=== PATIENT | female | born 1980 | race Caucasian/White ===

== ENCOUNTER 2025-10-29 12:34 | Emergency (ER) | payer OTHER, SELFPAY ==
[2025-10-29 12:37] VITALS: BP 130/93; PULSE 83; TEMP 36.9; O2SAT 96; BMI 62.9
[2025-10-29 13:21] LABS: SARS-CoV-2 Ag NEGATIVE (NEGATIVE)
--- OUTSIDE RECORDS SUMMARY | 2025-10-29 13:54 | XMS_ITS | Clinical Summary ---
Author Organization [facility] Address [address] [place] [id number] Care Team Providers Care Ranch Supervisor Name Role Phone Aurelio Novoa MD Primary Care Provider + Allergies No known active allergies Medications MedicationSigDispense QuantityRefillsLast FilledStart DateEnd DateStatus trazodone HCl (TRAZODONE PO) Take by mouth.Active albuterol HFA (PROVENTIL HFA, VENTOLIN HFA) 90 mcg/actuation inhaler Inhale 2 puffs as instructed every 6 hours as needed.Active Omeprazole 20 mg TbEC Take 20 mg by mouth once daily.Active fluticasone (FLOVENT) 44 mcg/actuation inhaler Inhale 2 puffs as instructed two times a day.10/09/2022ctive furosemide (LASIX) 20 mg tablet Take 20 mg by mouth once daily.Active hydrOXYzine pamoate (VISTARIL) 25 mg capsule Take 25 mg by mouth three times a day as needed for anxiety.06/12/2022ctive lamoTRIgine (LAMICTAL) 100 mg tablet Take 100 mg by mouth two times a day.Active lurasidone (LATUDA) 60 mg tablet Take 60 mg by mouth daily with food.Active montelukast (SINGULAIR) 10 mg tablet Take 10 mg by mouth daily at bedtime.Active sertraline (ZOLOFT) 50 mg tablet Take 50 mg by mouth once daily.5Active Trospium (SANCTURA SR) 60 mg cp24 Take 60 mg by mouth once daily.4Active GEMTESA 75 mg tablet Take 75 mg by mouth once daily.5Active traZODone (DESYREL) 50 mg tablet Take 50 mg by mouth daily at bedtime.5Active Active Problems ProblemNoted DateDiagnosed DateGERD (gastroesophageal reflux disease)06/13/2021 SOBOE (shortness of breath on exertion)06/13/2021Morbid obesity due to excess iknylkpn00/10/2021UI (stress urinary incontinence, female)04/30/2021annus, yegotwsmy57/28/2021Urgency-frequency uwhjmhhl31/28/2016 Social History Tobacco UseTypesPacks/DayYears UsedDateSmoking Tobacco: Every DayCigarettes Tobacco Cessation:Ready to Q uit: Not Asked; Counseling Given: Not Answered Alcohol UseStandard Drinks/WeekCommentsNever0 (1 standard drink = 0.6 oz pure alcohol)Area Deprivation IndexAnswerDate RecordedNational Score (1-100), lower number is lower fzwb633505/20/2025State Score (1-10), lower number is lower risk5 05/20/2025Data from: https://www.neighborhoodatlas.[facility].edu/. Last address used for vioqxajqnsl[address] [facility]05/20/2025CommentsUnknownSex and Gender InformationValueDate RecordedSex Assigned at BirthNot on fileLegal LijUqpajc15/19/2021 10:08 PM ESTGender IdentityNot on fileSexual OrientationNot on file Last Filed Vital Signs Vital SignReadingTime TakenCommentsBlood Urymdsag397/6407 12:00 PM EDT Dalmd791205/20/2025 2:00 PM EYTRxffmkkosbo22.4 ??C (97.5 ??F)05/20/2025 9:52 AM EDTRespiratory Bcqz858905/20/2025 2:00 PM EDTOxygen Wxsxnrrexz521%05/20/2025 2:00 PM EDTInhaled Oxygen Concentration--Ebfqug842.3 kg (305 lb)05/20/2025 9:52 AM EDTHeight--Body Mass Index-- Plan of Treatment Health MaintenanceDue DateLast DoneCommentsAnxiety Zgteocaqg70/20/1998Depression Bojwgundm97/20/1998HIV Ouwdufcmf89/20/1998Hepatitis C Jrozlknnd14/20/1998 DTaP,Tdap,Td Vaccine (1 - Tdap)02/20/1999Hepatitis B Vaccine (1 of 3 - 19+ 3- dose series)02/20/1999Cervical Cancer Utkmvvvjg06/20/2001HPV Vaccine (1 - 3-dose SCDM series)02/20/2007Pneumococcal Vaccine (2 of 2 - PCV) Mammogram Edpbxzfol49/11/971090/09/2023, 07/01/2022, 06/18/2021, Additional history existsCT Awlanyhkawpc27/20/2025Cologuard (FIT-DNA)5Colonoscopy 5Colorectal Cancer Oieuyydoj17/20/2025Fecal Occult Blood02/20/2025 Jrizqpuhibohx23/20/2025Covid-19 Vaccine ( season)2025 11/23/2021, 04/28/2021, 03/31/2021Influenza Vaccine (#1)2024, 08/30/2022, 08/22/2021, Additional history existsLipid Crderdseb59/17/2026 1Diabetes Nyqnwnsqv94/18/934103/, 09/30/2021, 09/30/2021, Additional history exists Procedures Procedure NamePriorityDate/TimeAssociated DiagnosisCommentsCOMPREHENSIVE METABOLIC FPHOHJOKA49/18/2025 11:19 AM EDT SARA SCREENING W TOMO07/14/2023 10:29 AM EDT LIPID PANEL, OSLWILBTdhhqwk82/17/2021 10:47 AM EDT from Last 3 Months or Most Recently Relevant to Health Maintenance Results * (ABNORMAL) COMPREHENSIVE METABOLIC PANEL (05/20/2025 11:19 AM EDT)Component ValueRef RangeTest MethodAnalysis TimePerformed AtPathologist Signature Protein, Total7.26.3 - 8.0 g/dL05/20/2025 11:44 AM [facility] Albumin4.43.9 - 4.9 g/dL05/20/2025 11:44 AM [facility] LABCalcium, Total9.68.5 - 10.2 mg/dL05/20/2025 11:44 AM [facility] Bilirubin, Total1.00.2 - 1.3 mg/dL05/20/2025 11:44 AM [facility] LABComment:Use of this assay is not recommended for patients undergoing treatment with eltrombopag due to the potential for falsely elevated results. Alkaline Jxvzbmblkmx9702 - 123 U/L05/20/2025 11:44 AM [facility] PXRUMT3471 - 35 U/L05/20/2025 11:44 AM [facility] YANIPK114 - 38 U/L05/20/2025 11:44 AM [facility] BODCydnfga461(H)74 - 99 mg/dL 05/20/2025 11:44 AM [facility] LABComment: The [place] Diabetes Association (ADA) provides guidance for cutoff values for fasting glucose andrandom glucose. The ADA defines fasting as no caloric intake for at least 8 hours. Fasting plasma glucose results between 100 to 125 mg/dL indicate increased risk for diabetes (prediabetes). Fasting plasma glucose results greater than or equal to 126 mg/dL meet the criteria for diagnosis of diabetes. In the absence of unequivocal hyperglycemia, results should be confirmed by repeat testing. In a patient with classic symptoms of hyperglycemia or hyperglycemic crisis, random plasma glucose results greater than or equal to 200 mg/dL meet the criteria for diagnosis of diabetes. Reference: Standards of Medical Care in Diabetes 2016, Australian Diabetes Association. Diabetes Care. 2016.39(Suppl 1). THJ220 - 21 mg/dL05/20/2025 11:44 AM [facility] LABCreatinine0.90 0.58 - 0.96 mg/dL05/20/2025 11:44 AM [facility] LABComment:Use of this assay is not recommended for patients undergoing treatment with phenindione, due to thepotential for falsely depressed results.Kpliwr231775 - 144 mmol/L05/20/2025 11:44 AM [facility] LABPotassium3.3(L)3.7 - 5.1 mmol/L05/20/2025 11:44 AM [facility] DPLMldubqxf38642 - 107 mmol/L 05/20/2025 11:44 AM [facility] VUAWT451(L)22 - 30 mmol/L05/20/2025 11:44 AM [facility] LABAnion Pmw980 - 15 mmol/L05/20/2025 11:44 AM [facility] LABEstimated Glomerular Filtration Rate81>=60 mL/min/1.73m 05/20/2025 11:44 AM [facility] LABComment:Estimated Glomerular Filtration Rate (eGFR) is calculated using the 2020 CKD-EPI creatinine equation. This equation utilizes serum creatinine, sex, and age as parameters. The creatinine assay has traceable calibration to isotope dilution-mass spectrometry. Refer to KDIGO guidelines for clinical interpretation. In patients with unstable renal function, e.g. those with acute kidney injury, the eGFRmay not accurately reflect actual GFR.Specimen (Source)Anatomical Location / LateralityCollection Method / VolumeCollection TimeReceived TimeBloodBLOOD SPECIMEN / UnknownVenipuncture / Inuehmm7705/20/2025 11:19 AM EDT05/20/2025 11:26 AM EDT Narrative Authorizing ProviderResult TypeResult StatusJoeliazar Tamayo MDLABORATORYFinal ResultPerforming OrganizationAddressCity/State/ZIP CodePhone Number [facility] [address] [place] [address], * SARA SCREENING W MARTINEZ (07/14/2023 10:29 AM EDT)Anatomical RegionLaterality ModalityBreastMammographySpecimen (Source)Anatomical Location / Laterality Collection Method / VolumeCollection TimeReceived Time07/14/2023 10:29 AM EDT Impressions 07/14/2023 1:03 PM EDT IMPRESSION: NEGATIVE There is no mammographic evidence of malignancy. A 1 year screening mammogram is recommended. The false-negative rate of mammography is approximately 10%. Management of a palpable abnormality must be based upon clinical grounds. Adeola Woodward M.D. ear/penrad:07/14/2023 11:22:19 Slip Caster: Alyson Cutler RT(Josesito)(Whit), [facility] letter sent: Mammography Normal BI-RADS: 1 Negative Gymnastic Teacher: Betty Transcribe Date/Time: Jul 14 2023 10:31A Dictated by : ADEOLA ??MD CRISSY This examination was interpreted and the report reviewed and electronically signed by: ADEOLA WOODWARD MD on Jul 14 2023 11:22AM ??EST Narrative 07/14/2023 1:03 PM EDT * * *Final Report* * * DATE OF EXAM: Jul 14 2023 10:29AM ?? RLW ?? 0582 ??- ??SARA SCREENING W MARTINEZ ??/ PROCEDURE REASON: BILATERAL SCREENING MAMMOGRAM WITH CAD [id number] ? * * * * Physician Interpretation * * * * BILATERAL DIGITAL SCREENING MAMMOGRAM TOMOSYNTHESIS WITH CAD: 07/14/2023 Ordering Physician: ??Aurelio Novoa M.D. CLINICAL: Bilateral Screening Mammogram With Cad [id number]. Comparison is made to exams dated: ??07/01/2022 mammogram - [facility] and 06/18/2021 mammogram - [facility]. The tissue of both breasts is predominantly fatty. Digital Breast Tomosynthesis was performed. Current study was also evaluated with a Computer Aided Detection (CAD) system. No significant masses, calcifications, or other findings are seen in either breast. There has been no significant interval change. Procedure Note Provider, [facility] - 07/14/2023 * * *Final Report* * * DATE OF EXAM: Jul 14 2023 10:29AM RLW 0582 - SARA SCREENING W MARTINEZ / PROCEDURE REASON: BILATERAL SCREENING MAMMOGRAM WITH CAD [id number] * * * * Physician Interpretation * * * * BILATERAL DIGITAL SCREENING MAMMOGRAM TOMOSYNTHESIS WITH CAD: 07/14/2023 Ordering Physician: Aurelio Novoa M.D. CLINICAL: Bilateral Screening Mammogram With Cad [id number]. Comparison is made to exams dated: 07/01/2022 mammogram - [facility] and 06/18/2021 mammogram - [facility]. The tissue of both breasts is predominantly fatty. Digital Breast Tomosynthesis was performed. Current study was also evaluated with a Computer Aided Detection (CAD) system. No significant masses, calcifications, or other findings are seen in either breast. There has been no significant interval change. IMPRESSION IMPRESSION: NEGATIVE There is no mammographic evidence of malignancy. A 1 year screening mammogram is recommended. The false-negative rate of mammography is approximately 10%. Management of a palpable abnormality must be based upon clinicalgrounds. Adeola Woodward M.D. ear/penrad:07/14/2023 11:22:19 Slip Caster: Alyson UMANZOR)(M), [facility] letter sent: Mammography Normal BI-RADS: 1 Negative Gymnastic Teacher: Betty Transcribe Date/Time: Jul 14 2023 10:31A Dictated by : ADEOLA WOODWARD MD This examination was interpreted and the report reviewed and electronically signed by: ADEOLA WOODWARD MD on Jul 14 2023 11:22AM EST Authorizing ProviderResult TypeResult StatusBrasalomon Novoa MDMAM-PAMAFinal Result * LIPID PANEL BASIC (07/20/2021 10:47 AM EDT)ComponentValueRef RangeTest Method Analysis TimePerformed AtPathologist GlhtvxtztPzdcnqpjrgfc78200 - 149 MG/DL [facility] LABORATORYCholesterol, Fwtlx9988 - 199 MG/DLOHIOHEALTH GROVE CITY [facility]IST [facility] LABORATORYHDL Ebbhbeedxmw0145 - 60 MG/DLOHIOHEALTH GROVE CITY [facility]IST [facility] LABORATORYLDL Cholesterol, Teqsyocuhv4170 - 129 MG/DLOHIOHEALTH GROVE CITY [facility]IST [facility] LABORATORYSpecimen (Source)Anatomical Location / LateralityCollection Method / VolumeCollection TimeReceived TimeBLOOD SPECIMEN / Ujtelzy6907/20/2021 10:47 AM EDT07/20/2021 10:47 AM EDT Narrative [facility] - 07/20/2021 12:26 PM EDT Calculate Medical Necessity? Authorizing ProviderResult TypeResult StatusLeisa BridleLABORATORYFinal Result Performing OrganizationAddressCity/State/ZIP CodePhone Number [facility] [address] [place] [address], from Last 3 Months or Most Recently Relevant to Health Maintenance Insurance * Guarantor: Zayra Byers TypeRelation to PatientDate of BirthPhone Billing AddressPersonal/[address]df[address]nc[address]1980 [place] [address] Care Teams Team MemberRelationshipSpecialtyStart DateEnd Date Aurelio Novoa MD [facility] [place] [address] PCP - GeneralFamily Medicine06/04/23
[2025-10-29 14:07] VITALS: BP 135/104; PULSE 86; O2SAT 97
--- NOTE | 2025-10-29 18:17 | ED.GENADUL1 ---
HPI HPI - General Adult General Chief complaint: Upper Respiratory Infection Stated complaint: SOB Time Seen by Provider: 10/29/25 12:46 Source: patient Mode of arrival: ambulance History of Present Illness HPI narrative: Patient is a 45-year-old female presenting to the emergency department of EMS for URI symptoms x 1 week. Patient states she has a sore throat, cough, congestion, and fatigue for the last week. States he has a history of asthma, but did not believe she is wheezing. She denies any significant shortness of breath or chest pain. No nausea or vomiting. No fevers or chills. Still tolerating p.o. Related Data Home Medications ?Medication ?Instructions ?Recorded ?Confirmed furosemide 40 mg tablet 40 mg PO DAILY 10/29/25 10/29/25 hydroxyzine HCl 25 mg tablet 25 mg PO BID 10/29/25 10/29/25 levothyroxine 75 mcg capsule 75 mcg PO DAILY 10/29/25 10/29/25 lurasidone 60 mg tablet 60 mg PO DAILY 10/29/25 10/29/25 montelukast 10 mg tablet 10 mg PO DAILY 10/29/25 10/29/25 omeprazole 20 mg capsule,delayed 20 mg PO DAILY 10/29/25 10/29/25 release sertraline 50 mg tablet 50 mg PO DAILY 10/29/25 10/29/25 trazodone 50 mg tablet 50 mg PO DAILY 10/29/25 10/29/25 trospium 60 mg capsule,extended 60 mg PO DAILY 10/29/25 10/29/25 release 24 hr vibegron 75 mg tablet (Gemtesa) 75 mg PO DAILY 10/29/25 10/29/25 Previous Rx's ?Medication ?Instructions ?Recorded amoxicillin 875 mg tablet 875 mg PO Q12H 10 days #20 tabs 10/29/25 Allergies Allergy/AdvReac Type Severity Reaction Status Date / Time fluticasone (From Flonase) AdvReac Intermediate nose bleed Verified 10/29/25 12:35 gold luz powder AdvReac Mild Rash Uncoded 10/29/25 12:35 Review of Systems ROS Status of ROS 10 or more systems reviewed and unremarkable except as noted in history and below PFSH PFSH Social History Little interest or pleasure in doing things: not at all Feeling down, depressed, or hopeless: not at all Exam Narrative Exam Narrative: CONSTITUTIONAL: Well-appearing, answering questions and following commands appropriately SKIN: Was warm and dry. EYES: Sclerae white. EARS, NOSE, THROAT: Moist oral mucosa. Mild pharyngeal edema without tonsillar enlargement or exudates. Uvula midline. No UMBRELLA TIPPER. No trismus. Speaking with normal voice. RESPIRATORY: Clear to auscultation bilaterally, no wheezes, crackles, or stridor, no use of accessory muscles CARDIOVASCULAR: Normal rate and regular rhythm. There is no S3, S4, murmur, rub. GASTROINTESTINAL: Abdomen is nondistended. MUSCULOSKELETAL: No peripheral edema. NEUROLOGIC: Patient is awake and alert. Facies were symmetrical. Constitutional Vital Signs, click to edit/add: Last Vital Signs Temp 98.5 F 10/29/25 12:37 Pulse 86 10/29/25 14:07 Resp 18 10/29/25 14:07 BP 135/104 H 10/29/25 14:07 Pulse Ox 97 10/29/25 14:07 O2 Del Method Room Air 10/29/25 14:07 Course Vital Signs Vital signs: Vital Signs Temperature 98.5 F 10/29/25 12:37 Pulse Rate 83 10/29/25 12:37 Respiratory Rate 18 10/29/25 12:37 Blood Pressure 130/93 H 10/29/25 12:37 Pulse Oximetry 96 10/29/25 12:37 Oxygen Delivery Method Room Air 10/29/25 12:37 Temperature 98.5 F 10/29/25 12:37 Pulse Rate 86 10/29/25 14:07 Respiratory Rate 18 10/29/25 14:07 Blood Pressure 135/104 H 10/29/25 14:07 Pulse Oximetry 97 10/29/25 14:07 Oxygen Delivery Method Room Air 10/29/25 14:07 Medical Decision Making [facility] Narrative Medical decision making narrative: Patient is a 45-year-old female presenting to the emergency department for evaluation of URI symptoms x 1 week. Her vital signs on arrival are within normal limits. She is afebrile and hemodynamically stable. She is saturating 97% on room air in no respiratory distress. Examination as noted above. Differential diagnosis includes streptococcal pharyngitis, viral URI. I did consider pneumonia, however the patient has clear/equal breath sounds bilaterally, is not hypoxic, and overall looks non-toxic and well-hydrated. Patient tested positive for streptococcal pharyngitis. I do believe the patient is stable for discharge. They were instructed to follow up with their PCP as needed. Return precautions were given including any new or worsening symptoms. They were given a prescription for amoxicillin 500 mg twice daily x 10 days. Patient understands and agrees to the plan. FINAL IMPRESSION: #Acute streptococcal pharyngitis DISPOSITION: Discharged home CONDITION: Good Lab Data Lab results reviewed: Yes I reviewed the patient's lab results Labs: Lab Results 10/29/25 Range/Units 12:47 Influenza Type A Ag Negative Influenza Type B Ag Negative SARS-CoV-2 Ag (CV2AG) Negative (NEGATIVE) Streptococcus Screen Positive A Discharge Plan Discharge Chief Complaint: Upper Respiratory Infection Clinical Impression: Strep pharyngitis Patient Disposition: Home, Self-Care Time of Disposition Decision: 13:22 Condition: Good Mode of Transportation: Private Vehicle Prescriptions / Home Meds: New amoxicillin 875 mg tablet 875 mg PO Q12H 10 Days Qty: 20 0RF No Action montelukast 10 mg tablet 10 mg PO DAILY furosemide 40 mg tablet 40 mg PO DAILY trazodone 50 mg tablet 50 mg PO DAILY omeprazole 20 mg capsule,delayed release(DR/EC) 20 mg PO DAILY hydroxyzine HCl 25 mg tablet 25 mg PO BID sertraline 50 mg tablet 50 mg PO DAILY trospium 60 mg capsule,extended release 24hr 60 mg PO DAILY Rx Instructions: must be taken on empty stomach at least 1 hour before a meal/food with water only levothyroxine 75 mcg capsule 75 mcg PO DAILY lurasidone 60 mg tablet 60 mg PO DAILY Rx Instructions: must administer with food (at least 350 calories) Gemtesa 75 mg tablet 75 mg PO DAILY Print Language: Turkish Instructions: Strep Throat (ED) Discharge Date/Time: 10/29/25 14:11
== END 2025-10-29 14:11 | disposition home or self-care (01) ==
LOC: ER 13:51
PROVIDERS: Emergency Provider Student in an Organized Health Care Education/Training Program
DX: J02.0 Streptococcal pharyngitis (principal); B95.0 Streptococcus, group A, as the cause of diseases classified elsewhere
CPT/HCPCS: 87804; 87811; 87880; 99285